=== PATIENT | male | born 1985 | race African-American/Black ===

== ENCOUNTER 2017-07-17 08:13 | Emergency (ER) | payer OTHER ==
[2017-07-17 08:19] VITALS: BP 120/80; PULSE 52; TEMP 97.4; BMI 23.7
--- NOTE | 2017-07-17 08:40 | PDOC ---
History of Present Illness - General Chief Complaint: Psychiatric Stated Complaint: PSYCH EVALUATION Time Seen by Provider: 07/17/17 08:22 History Source: Patient Exam Limitations: No Limitations - History of Present Illness Initial Comments: This is a 32 YOM with h/o bipolar disorder with manic episodes every ~5 years ( previously admitted with last inpatient stay in [id number], followed by outpatient treatment program in 2011, has not been medicated since 2011) who p/ w progressive manic episode which he describes as "feeling high" the same as his prior manic episodes. The last time he had an episode was in [id number]. He describes losing his job in January as a provoking factor for this episode and also notes feeling depressed because of this. He lives in an apartment currently and has a close friend who lives in [place] but no family members close by. He denies suicidal ideation, homicidal ideation, history of suicidal or homicidal ideation, presence of weapons or potentially lethal amounts/types of medication in the home, or substance use (denies alcohol/drug use). He states that he is eating and sleeping well. Has previously gotten relief with regimen of lithium, cogentin, and risperidone for his bipolar disorder. Past History - Past Medical History Allergies/Adverse Reactions: Allergies No Known Allergies Allergy (Verified 07/17/17 08:20) Home Medications: Ambulatory Orders NK [No Known Home Medication] 07/17/17 - Social History Smoking Status: Never smoked *Physical Exam - Vital Signs Last Vital Signs Temp Pulse Resp BP Pulse Ox 97.4 F L 52 L 18 120/80 99 07/17/17 08:15 07/17/17 08:15 07/17/17 08:15 07/17/17 08:15 07/17/17 08:15 Plan - Progress Note Progress Note: 07/17/17 09:10 Patient has no SI/HI/means for harming himself. Spoke with Dr. Magana, states without SI/HI unlikely this will be a psych emergency. Patient will have workup done and if any further questions we will call Dr. Magana again. 07/17/17 12:00 Patient no longer in room, no staff notes having seen him elope. Will check bathrooms, additional ED patient rooms, hallways. 07/17/17 13:49 Patient still not present, entering this as eloped. Dr. Magana text messaged to let him know the patient is no longer here. - Laboratory CBC & Chemistry Diagram: 07/17/17 09:15 07/17/17 09:15 *DC/Admit/Observation/Transfer Diagnosis at time of Disposition: Psychiatric complaint - Discharge Dispostion Disposition: ELOPED - Referrals - Patient Instructions - Post Discharge Activity
[2017-07-17 09:20] LABS: BASO % 0.6 % (0-2.0); EOS % 1.9 % (0-4.5); HEMATOCRIT 45.4 % (35.4-49); LYMPH % 25.8 % (8-40); MCH 27.9 pg (25.7-33.7); MEAN CELL VOLUME 84.6 fl (80-96); MEAN PLT VOLUME 7.6 fl (7.5-11.1); MONO % 8.7 % (3.8-10.2); PLATELET COUNT 180 K/MM3 (134-434); RBC 5.37 M/mm3 (4.00-5.60); RDW 13.7 % (11.9-15.9); WHITE BLOOD COUNT 5.9 K/mm3 (4.0-10.0)
[2017-07-17 09:43] LABS: ALBUMIN 4.5 g/dl (3.4-5.0); ANION GAP 5 (8-16); BLOOD UREA NITROGEN 18 mg/dL (7-18); CALCIUM 8.8 mg/dL (8.5-10.1); CHLORIDE 103 mmol/L (98-107); CO2 31 mmol/L (21-32); CREATININE 1.3 mg/dL (0.7-1.3); GLUCOSE,RANDOM 81 mg/dL (74-106); POTASSIUM 3.8 mmol/L (3.5-5.1); SGOT/AST 34 U/L (15-37); SGPT/ALT 49 U/L (12-78); SODIUM 139 mmol/L (136-145)
[2017-07-17 09:46] LABS: SALICYLATE < 4.0 mg/dl (0.0-30.0)
[2017-07-17 09:48] LABS: ALCOHOL < 5.0 mg/dl (0-5)
[2017-07-17 09:51] LABS: ACETAMINOPHEN < 10 ug/ml (10.0-30.0)
[2017-07-17 09:52] LABS: ALK PHOS 86 U/L (45-117)
--- NOTE | 2017-07-17 09:52 | PDOC ---
Attending Attestation - Resident Resident Name: Almaz Randle - ED Attending Attestation I have performed the following: I have examined & evaluated the patient, The case was reviewed & discussed with the resident, I agree w/resident's findings & plan, Exceptions are as noted - HPI HPI: 07/17/17 09:46 32 M with h/o bipolar d/o presenting to ED with sensation that he is having a manic episode. Pt states that he "feels high". Denies any substance use. Pt states that this feeling is the same as his previous manic episodes. His last manic episode was in 2011 and required inpatient psych admission. Pt states he has not been on any psychiatric medications since then, as he has not required them. Pt denies SI/HI/AVH at this time. Denies F/C. Denies CP/SOB. Denies palpitations. - Physicial Exam PE: 07/17/17 09:48 "GENERAL: Awake, alert, and fully oriented, in no acute distress HEAD: No signs of trauma EYES: PERRLA, EOMI, sclera anicteric, conjunctiva clear ENT: Auricles normal inspection, hearing grossly normal, nares patent, oropharynx clear without exudates. Moist mucosa NECK: Nontender, no stepoffs, Normal ROM, supple, no lymphadenopathy, JVD, or masses LUNGS: Breath sounds equal, clear to auscultation bilaterally. No wheezes, and no crackles HEART: Regular rate and rhythm, normal S1 and S2, no murmurs, rubs or gallops ABDOMEN: Soft, nontender, normoactive bowel sounds. No guarding, no rebound. No masses EXTREMITIES: Normal range of motion, no edema. No clubbing or cyanosis. No cords, erythema, or tenderness NEUROLOGICAL: Cranial nerves II through XII intact. 5/5 strength and sensation in all extremities, Normal speech, normal gait SKIN: Warm, Dry, normal turgor, no rashes or lesions noted. " - Medical Decision Making 07/17/17 09:50 32 M with h/o bipolar disorder presenting with possible manic episode. Exam without any notable psychomotor agitation or signs of michael. Denies any h/o substance use. Does not clinically appear to be in withdrawal. Vitals wnl. Will check basic labs and consult psychiatry. - Labs - Psych consult 07/17/17 10:[address] Magana, who recommends outpt psych follow up as pt does not endorse any SI/HI/AVH, but he will come evaluate pt. 07/17/17 10:44 Pt could not be found in room. Likely eloped while awaiting psych eval. Prior to elopement, pt denied SI/HI. Appeared to have insight and was reasonable. I do not believe pt poses a threat to himself or others.
[2017-07-17 10:30] LABS: COCAINE, UR NEGATIVE ng/ml (CUTOFF=300); PHENCYCLIDINE,URINE NEGATIVE ng/ml (CUTOFF=25); URINE AMPHETAMINES NEGATIVE ng/ml (CUTOFF=500); URINE BARBITURATES NEGATIVE ng/ml (CUTOFF=200)
[2017-07-17 10:31] LABS: METHADONE, UR NEGATIVE ng/ml (CUTOFF=300); OPIATES, URI NEGATIVE ng/ml (CUTOFF=300); URINE BENZODIAZEPINES NEGATIVE ng/ml (CUTOFF=200)
--- NOTE | 2017-07-17 16:52 | EKG ---
Test Reason : Blood Pressure : / mmHG Vent. Rate : 046 BPM Atrial Rate : 046 BPM P-R Int : 178 ms QRS Dur : 088 ms QT Int : 442 ms P-R-T Axes : 066 080 068 degrees QTc Int : [address] ELEVATION, CONSIDER EARLY REPOLARIZATION BORDERLINE ECG NO PREVIOUS ECGS AVAILABLE Confirmed by DENNIS BA MD ([id number]) on 07/17/2017 4:52:41 PM Referred By: Confirmed By:DENNIS BA MD
== END 2017-07-17 13:51 | disposition left against medical advice (07) ==
LOC: JER 08:13
DX: F31.9 Bipolar disorder, unspecified (principal)
CPT/HCPCS: 36415; 80053; 80307; 84443; 85025; 93005; 93010; 99282-25